=== PATIENT | male | born 1990 | race Caucasian/White ===

== ENCOUNTER 2017-12-17 09:32 | Emergency (ER) | payer SELFPAY ==
[2017-12-17] MEDS ORDERED: Ketorolac 30 MG/ML SDV IVPUSH ONE (09:57)
[2017-12-17] MEDS ORDERED: Sodium Chloride 0.9% 1,000 ML IV ONE (09:57)
[2017-12-17] MEDS ORDERED: Ondansetron 4 MG/2 ML SDV IVPUSH ONE (09:57)
--- NOTE | 2017-12-17 09:58 | EDM.PDOC ---
ED HPI GENERAL MEDICAL PROBLEM - General Chief Complaint: Abdominal Pain Stated Complaint: ABD PAIN Time Seen by Provider: 12/17/17 09:57 Source of Information: Reports: Patient - History of Present Illness INITIAL COMMENTS - FREE TEXT/NARRATIVE: HISTORY AND PHYSICAL: History of present illness: [Patient presents with abdominal pain, he has a focus of pain over his umbilicus radiating to the right lower quadrant rates 5 out of 10 no fever vomiting chills sweats some intermittent nausea ] Review of systems: As per history of present illness and below otherwise all systems reviewed and negative. Past medical history: As per history of present illness and as reviewed below otherwise noncontributory. Surgical history: As per history of present illness and as reviewed below otherwise noncontributory. Social history: No reported history of drug or alcohol abuse. Family history: As per history of present illness and as reviewed below otherwise noncontributory. Physical exam: HEENT: Atraumatic, normocephalic, pupils reactive, negative for conjunctival pallor or scleral icterus, mucous membranes moist, throat clear, neck supple, nontender, trachea midline. Lungs: Clear to auscultation, breath sounds equal bilaterally, chest nontender. Heart: S1S2, regular, negative for clicks, rubs, or JVD. Abdomen: Soft, nondistended, nontender and upper quadrants there is an area of tenderness supraumbilical which appears to be a small mass lesion possible hernia on exam and there is tenderness on deep palpation in the right lower quadrant no guarding or rebound. Negative for masses or hepatosplenomegaly. Negative for costovertebral tenderness. Pelvis: Stable nontender. Genitourinary: Deferred. Rectal: Deferred. Extremities: Atraumatic, negative for cords or calf pain. Neurovascular unremarkable. Neuro: Awake, alert, oriented. Cranial nerves II through XII unremarkable. Cerebellum unremarkable. Motor and sensory unremarkable throughout. Exam nonfocal. Diagnostics: [CBC CMP UA CT abdomen pelvis with contrast ] Therapeutics: [] normal saline bolus Zofran 8 mg IV Toradol 30 mg IV Surgery consultation with Dr. Alfaro she has been in to see and evaluate the patient in the emergency room and formulated plan Bactrim double strength by mouth twice a day #20 no refill Mallard Follow-up with Dr. Alfaro in 2 weeks return to the emergency room if symptoms persist or worsen Impression: [ rectal sheath abscess 3 x 2 x 2 cm ] Definitive disposition and diagnosis as appropriate pending reevaluation and review of above. abdominal Pain Score (Numeric/FACES): 7 - Related Data Allergies Allergy/AdvReac Type Severity Reaction Status Date / Time No Known Allergies Allergy Verified 12/17/17 09:51 Home Meds: Home Meds . [No Known Home Meds] 12/17/17 [History] Past Medical History HEENT History: Reports: None Cardiovascular History: Reports: None Respiratory History: Reports: None Gastrointestinal History: Reports: None Genitourinary History: Reports: None Musculoskeletal History: Reports: None Neurological History: Reports: None Psychiatric History: Reports: None Endocrine/Metabolic History: Reports: None Hematologic History: Reports: None Immunologic History: Reports: None Oncologic (Cancer) History: Reports: None Dermatologic History: Reports: None - Infectious Disease History Infectious Disease History: Reports: Chicken Pox, Other (See Below) Other Infectious Disease History: previous hx of staph - Past Surgical History HEENT Surgical History: Reports: Oral Surgery Cardiovascular Surgical History: Reports: None Respiratory Surgical History: Reports: None GI Surgical History: Reports: None Male Surgical History: Reports: None Endocrine Surgical History: Reports: None Neurological Surgical History: Reports: None Musculoskeletal Surgical History: Reports: None Oncologic Surgical History: Reports: None Dermatological Surgical History: Reports: None Social & Family History - Family History Family Medical History: Noncontributory - Tobacco Use Smoking Status *Q: Current Every Day Smoker Years of Tobacco use: 11 Packs/Tins Daily: 1 - Caffeine Use Caffeine Use: Reports: Coffee - Alcohol Use Number of Drinks Per Day: 10 - Recreational Drug Use Recreational Drug Use: No ED ROS GENERAL - Review of Systems Review Of Systems: See Below ED EXAM, GENERAL - Physical Exam Exam: See Below Course - Vital Signs Last Recorded V/S: Last Vital Signs Temp 98.9 F 12/17/17 09:51 Pulse 89 12/17/17 09:51 Resp 18 12/17/17 09:51 BP 157/85 H 12/17/17 09:51 Pulse Ox 98 12/17/17 09:51 - Orders/Labs/Meds Orders: Active Orders 24 hr Category Date Time Status Notify Provider Consults [RC] ASDIRECTED Care 12/17/17 12:38 Ordered Consult to Physician [CONS] Stat Cons 12/17/17 12:36 Ordered Abdomen Pelvis w Cont [CT] Stat Exams 12/17/17 10:15 Taken UA W/MICROSCOPIC [URIN] Stat Lab 12/17/17 10:05 Ordered Labs: Laboratory Tests 12/17/17 12/17/17 12/17/17 Range/Units 10:05 10:10 10:10 WBC 10.11 (4.0-11.0) K/uL RBC 4.37 L (4.50-5.90) M/uL Hgb 14.5 (13.0-17.0) g/dL Hct 41.8 (38.0-50.0) % MCV 95.7 (80.0-98.0) fL MCH 33.2 H (27.0-32.0) pg MCHC 34.7 (31.0-37.0) g/dL RDW Std Deviation 41.9 (28.0-62.0) fl RDW Coeff of Kevin 12 (11.0-15.0) % Plt Count 209 (150-400) K/uL MPV 9.60 (7.40-12.00) fL Neut % (Auto) 71.1 (48.0-80.0) % Lymph % (Auto) 17.7 (16.0-40.0) % [place] % (Auto) 10.2 (0.0-15.0) % Eos % (Auto) 0.8 (0.0-7.0) % Baso % (Auto) 0.2 (0.0-1.5) % Neut # (Auto) 7.2 H (1.4-5.7) K/uL Lymph # (Auto) 1.8 (0.6-2.4) K/uL [place] # (Auto) 1.0 H (0.0-0.8) K/uL Eos # (Auto) 0.1 (0.0-0.7) K/uL Baso # (Auto) 0.0 (0.0-0.1) K/uL Nucleated RBC % 0.0 /100WBC Nucleated RBCs # 0 K/uL Sodium 140 (136-148) mmol/L Potassium 4.2 (3.5-5.1) mmol/L Chloride 104 (98-107) mmol/L Carbon Dioxide 28.3 (21.0-32.0) mmol/L BUN 13 (7.0-18.0) mg/dL Creatinine 0.9 (0.8-1.3) mg/dL Est Cr Clr Drug Dosing 135.32 mL/min Estimated GFR (MDRD) > 60.0 ml/min Glucose 74 (74-106) mg/dL Calcium 8.8 (8.5-10.1) mg/dL Total Bilirubin 0.5 (0.2-1.0) mg/dL AST 16 (15-37) IU/L ALT 27 (14-63) IU/L Alkaline Phosphatase 63 (46-116) U/L Total Protein 7.6 (6.4-8.2) g/dL Albumin 3.8 (3.4-5.0) g/dL Globulin 3.8 H (2.0-3.5) g/dL Albumin/Globulin Ratio 1.0 L (1.3-2.8) Lipase 109 (73-393) U/L Urine Color YELLOW Urine Appearance CLEAR Urine pH 6.0 (5.0-8.0) Ur Specific [place] 1.020 (1.001-1.035) Urine Protein NEGATIVE (NEGATIVE) mg/dL Urine Glucose (UA) NEGATIVE (NEGATIVE) mg/dL Urine Ketones TRACE H (NEGATIVE) mg/dL Urine Occult Blood NEGATIVE (NEGATIVE) Urine Nitrite NEGATIVE (NEGATIVE) Urine Bilirubin NEGATIVE (NEGATIVE) Urine Urobilinogen 1.0 (<2.0) EU/dL Ur Leukocyte Esterase NEGATIVE (NEGATIVE) Urine RBC 0-1 (0-2/HPF) Urine WBC 0-1 (0-5/HPF) Ur Epithelial Cells OCCASIONAL (NONE-FEW) Urine Bacteria RARE (NEGATIVE) Meds: Medications Discontinued Medications Generic Name Dose Route Start Last Admin Trade Name Freq PRN Reason Stop Dose Admin Sodium Chloride 1,000 mls @ 999 mls/hr 12/17/17 09:57 12/17/17 10:10 Normal Saline IV 12/17/17 10:57 999 mls/hr STAT ONE Administration Iopamidol 100 ml 12/17/17 11:08 12/17/17 11:09 Isovue Multipack-370 (76%) IVPUSH 12/17/17 11:09 100 ml ONETIME STA Administration Ketorolac Tromethamine 30 mg 12/17/17 09:57 12/17/17 10:14 Toradol IVPUSH 12/17/17 09:58 30 mg ONETIME ONE Administration Ondansetron HCl 8 mg 12/17/17 09:57 12/17/17 10:13 Zofran IVPUSH 12/17/17 09:58 8 mg ONETIME ONE Administration Departure - Departure Time of Disposition: 12:40 Disposition: Home, Self-Care 01 Condition: Fair Clinical Impression: Abscess - Discharge Information Referrals: PCP,None [Primary Care Provider] - Forms: ED Department Discharge Additional Instructions: Medication as prescribed No heavy equipment operation or driving or alcohol with narcotic pain medication Return if symptoms persist or worsen or fever nausea vomiting chills sweat Follow-up with Dr. Cota general surgery 2 weeks sooner as needed [facility] - General Surgery [address], [address] [place] [address] The following information is given to patients seen in the emergency department who are being discharged to home. This information is to outline your options for follow-up care. We provide all patients seen in our emergency department with a follow-up referral. The need for follow-up, as well as the timing and circumstances, are variable depending upon the specifics of your emergency department visit. If you don't have a primary care physician on staff, we will provide you with a referral. We always advise you to contact your personal physician following an emergency department visit to inform them of the circumstance of the visit and for follow-up with them and/or the need for any referrals to a consulting specialist. The emergency department will also refer you to a specialist when appropriate. This referral assures that you have the opportunity for follow-up care with a specialist. All of these measure are taken in an effort to provide you with optimal care, which includes your follow-up. Under all circumstances we always encourage you to contact your private physician who remains a resource for coordinating your care. When calling for follow-up care, please make the office aware that this follow-up is from your recent emergency room visit. If for any reason you are refused follow-up, please contact the [facility] emergency department at and asked to speak to the emergency department charge nurse. - My Orders Last 24 Hours: My Active Orders 12/17/17 10:05 UA W/MICROSCOPIC [URIN] Stat 12/17/17 10:15 Abdomen Pelvis w Cont [CT] Stat 12/17/17 12:36 Consult to Physician [CONS] Stat 12/17/17 12:38 Notify Provider Consults [RC] ASDIRECTED - Assessment/Plan Last 24 Hours: My Active Orders 12/17/17 10:05 UA W/MICROSCOPIC [URIN] Stat 12/17/17 10:15 Abdomen Pelvis w Cont [CT] Stat 12/17/17 12:36 Consult to Physician [CONS] Stat 12/17/17 12:38 Notify Provider Consults [RC] ASDIRECTED
[2017-12-17 10:39] LABS: CHLORIDE,CL 104 mmol/L (98-107); SODIUM,NA 140 mmol/L (136-148)
[2017-12-17] MEDS ORDERED: Iopamidol 755 MG/ML 500 ML Multipack Bottle IVPUSH STA (11:08)
--- NOTE | 2017-12-17 14:11 | PCM.CONS ---
H&P History of Present Illness - General Date of Service: 12/17/17 Source of Information: Patient History Limitations: Reports: Combative/Threatening - History of Present Illness Initial Comments - Free Text/Narative: Patient is a 27 year old male who presented to the ER with pain and swelling around his umbilicus. He felt pain along the right side of his abdomen as well. He had some nausea. He was very frustrated and short with me when asking about his history so my review of systems was very limited. According to the ER physician he was not having fevers or chills. 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 He denied any GI issues other than "I drink and smoke alot." abdominal Pain Score (Numeric/FACES): 7 - Related Data Allergies/Adverse Reactions: Allergies Allergy/AdvReac Type Severity Reaction Status Date / Time No Known Allergies Allergy Verified 12/17/17 09:51 Home Medications: Home Meds . [No Known Home Meds] 12/17/17 [History] Past Medical History HEENT History: Reports: None Cardiovascular History: Reports: None Respiratory History: Reports: None Gastrointestinal History: Reports: None Genitourinary History: Reports: None Musculoskeletal History: Reports: None Neurological History: Reports: None Psychiatric History: Reports: None Endocrine/Metabolic History: Reports: None Hematologic History: Reports: None Immunologic History: Reports: None Oncologic (Cancer) History: Reports: None Dermatologic History: Reports: None - Infectious Disease History Infectious Disease History: Reports: Chicken Pox, Other (See Below) Other Infectious Disease History: previous hx of staph - Past Surgical History HEENT Surgical History: Reports: Oral Surgery Cardiovascular Surgical History: Reports: None Respiratory Surgical History: Reports: None GI Surgical History: Reports: None Male Surgical History: Reports: None Endocrine Surgical History: Reports: None Neurological Surgical History: Reports: None Musculoskeletal Surgical History: Reports: None Oncologic Surgical History: Reports: None Dermatological Surgical History: Reports: None Social & Family History - Family History GI: Reports: Other (See Below) (Brother has crohn's disease.) - Tobacco Use Smoking Status *Q: Current Every Day Smoker Years of Tobacco use: 11 Packs/Tins Daily: 1 - Caffeine Use Caffeine Use: Reports: Coffee - Alcohol Use Alcohol Use History: Yes Number of Drinks Per Day: 10 Alcohol Use Frequency: Binges, Daily Alcohol Use Comment: Denies DT symptoms - Recreational Drug Use Recreational Drug Use: No H&P Review of Systems - Review of Systems: Review Of Systems: ROS reveals no pertinent complaints other than HPI. Exam - Exam Exam: See Below - Vital Signs Vital Signs: Last Vital Signs Temp 37.2 C 12/17/17 09:51 Pulse 89 12/17/17 09:51 Resp 18 12/17/17 09:51 BP 157/85 H 12/17/17 09:51 Pulse Ox 98 12/17/17 09:51 Weight: 94.7 kg - Exam General: Alert, Oriented, Other (Aggrivated and short with me) HEENT: Conjunctiva Clear, Mucosa Moist & [place], Posterior Pharynx Clear Neck: Supple, Trachea Midline Lungs: Clear to Auscultation, Normal Respiratory Effort Cardiovascular: Regular Rate, Regular Rhythm GI/Abdominal Exam: Soft, No Distention, Other (pin point tender along upper right rectus muscle, firm tender swelling in the supra-umbilical area. ) - Patient Data Lab Results Last 24 hrs: Laboratory Results - last 24 hr 12/17/17 12/17/17 12/17/17 Range/Units 10:05 10:10 10:10 WBC 10.11 (4.0-11.0) K/uL RBC 4.37 L (4.50-5.90) M/uL Hgb 14.5 (13.0-17.0) g/dL Hct 41.8 (38.0-50.0) % MCV 95.7 (80.0-98.0) fL MCH 33.2 H (27.0-32.0) pg MCHC 34.7 (31.0-37.0) g/dL RDW Std Deviation 41.9 (28.0-62.0) fl RDW Coeff of [place] 12 (11.0-15.0) % Plt Count 209 (150-400) K/uL MPV 9.60 (7.40-12.00) fL Neut % (Auto) 71.1 (48.0-80.0) % Lymph % (Auto) 17.7 (16.0-40.0) % [place] % (Auto) 10.2 (0.0-15.0) % Eos % (Auto) 0.8 (0.0-7.0) % Baso % (Auto) 0.2 (0.0-1.5) % Neut # (Auto) 7.2 H (1.4-5.7) K/uL Lymph # (Auto) 1.8 (0.6-2.4) K/uL [place] # (Auto) 1.0 H (0.0-0.8) K/uL Eos # (Auto) 0.1 (0.0-0.7) K/uL Baso # (Auto) 0.0 (0.0-0.1) K/uL Nucleated RBC % 0.0 /100WBC Nucleated RBCs # 0 K/uL Sodium 140 (136-148) mmol/L Potassium 4.2 (3.5-5.1) mmol/L Chloride 104 (98-107) mmol/L Carbon Dioxide 28.3 (21.0-32.0) mmol/L BUN 13 (7.0-18.0) mg/dL Creatinine 0.9 (0.8-1.3) mg/dL Est Cr Clr Drug Dosing 135.32 mL/min Estimated GFR (MDRD) > 60.0 ml/min Glucose 74 (74-106) mg/dL Calcium 8.8 (8.5-10.1) mg/dL Total Bilirubin 0.5 (0.2-1.0) mg/dL AST 16 (15-37) IU/L ALT 27 (14-63) IU/L Alkaline Phosphatase 63 (46-116) U/L Total Protein 7.6 (6.4-8.2) g/dL Albumin 3.8 (3.4-5.0) g/dL Globulin 3.8 H (2.0-3.5) g/dL Albumin/Globulin Ratio 1.0 L (1.3-2.8) Lipase 109 (73-393) U/L Urine Color YELLOW Urine Appearance CLEAR Urine pH 6.0 (5.0-8.0) Ur Specific [place] 1.020 (1.001-1.035) Urine Protein NEGATIVE (NEGATIVE) mg/dL Urine Glucose (UA) NEGATIVE (NEGATIVE) mg/dL Urine Ketones TRACE H (NEGATIVE) mg/dL Urine Occult Blood NEGATIVE (NEGATIVE) Urine Nitrite NEGATIVE (NEGATIVE) Urine Bilirubin NEGATIVE (NEGATIVE) Urine Urobilinogen 1.0 (<2.0) EU/dL Ur Leukocyte Esterase NEGATIVE (NEGATIVE) Urine RBC 0-1 (0-2/HPF) Urine WBC 0-1 (0-5/HPF) Ur Epithelial Cells OCCASIONAL (NONE-FEW) Urine Bacteria RARE (NEGATIVE) Result Diagrams: 12/17/17 10:10 12/17/17 10:10 Consult PN Assessment/Plan (1) Rectus sheath abscess SNOMED Code(s): 932611682 Code(s): K61.1 - RECTAL ABSCESS Current Visit: Yes Problem List Initiated/Reviewed/Updated: Yes Plan: His WBC is normal. A CT of his abdomen showed inflammation about the umbilicus and this extended to the rectus sheath where there was a 3.4 x 2.2 x 1.7 cm fluid collection with an enhancing wall suggestive of an abscess. I did not see an umbilical hernia. I tried to explain to the patient that this can be caused by a small hematoma that formed that subsequently got infected or could be a sign of something bigger going on. His brother has a history of crohn's and this can be a enterocutaneous fistula starting to form, however this is less likely. I explained that we could do one of three treatments; since it is small we could try a trial of antibiotics and see if this resolves on its own, we could try antibiotics over the weekend and attempt CT guided drainage next week with our interventional radiologist since he is not here today, the third option would involve surgical exploration with drainage of the abscess. If we attempt surgical drainage he would need to be off work and non-lifting for at least 2 weeks if not longer. He was frustrated and said "cant you just drain it right here?!" I told him the abscess is too deep to drain without radiological assistance or an operation. He stated "just give me pain meds and antibiotics. I 'll come back if I have to." He then sat up in bed and wanted to leave right away. 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 He said that is fine. He should follow up sooner if the pain worsens or he develops fevers, chills. He can otherwise follow up with me in 2 weeks.
--- NOTE | 2017-12-17 18:40 | CT ---
EXAM DATE: 12/17/17 PATIENT'S AGE: 27 Patient: [employer] Facility: [place], [place] Site . Site : 1990 Study: CT Abdomen/Pelvis [id number] 11:16:26 AM Ordering Physician: Trung Ivey Final Report: INDICATION: Right lower quadrant abdomen pain. Supraumbilical hernia. TECHNIQUE: CT abdomen and pelvis acquired with 100 cc Isovue 370 IV contrast. COMPARISON: None. FINDINGS: Lower chest: Unremarkable. Liver: Unremarkable. Normal in size and attenuation. No masses. Gallbladder and bile ducts: Unremarkable. No stones or inflammation. No biliary dilatation. Pancreas: Unremarkable. No mass or inflammation. Spleen: Unremarkable. Normal in size. No masses. Adrenal glands: Unremarkable. No nodules. Kidneys: Unremarkable. No masses, stones, or hydronephrosis. GI tract: Unremarkable. Normal in caliber. No sign of mass or inflammation. Normal appendix. Vasculature: Unremarkable. Lymph nodes: No lymphadenopathy. Omentum/Peritoneum/Abdominal Wall: There is inflammation about the umbilicus. This inflammation extends into the rectus sheath where there is a 3.4 by 2.2 x 1.7 cm fluid collection with an enhancing wall suggestive of an abscess as visualized on the axial series image 74 and the sagittal series image 66. There is edematous enlargement of the right side rectus abdominus muscle in this area. Small amount of free fluid in the pelvis. No free air. Pelvis: Unremarkable. Bones: Unremarkable for age. IMPRESSION: 1. There is paraumbilical inflammation extending into the rectus sheath where there is a small abscess and edematous enlargement of the right side rectus abdominus muscle. 2. Remainder of the exam is unremarkable. No other finding to explain abdomen or right-sided pain. Please note that all CT scans at this facility use dose modulation, iterative reconstruction, and/or weight-based dosing when appropriate to reduce radiation dose to as low as reasonably achievable. Dictated by Domingo Monae MD @ Dec 17 2017 11:36AM (Electronic Signature) Report Signed by Proxy. [facility]
== END 2017-12-17 13:11 | disposition home or self-care (01) ==
LOC: MW.ED 09:32
DX: K61.1 Rectal abscess (principal); F17.210 Nicotine dependence, cigarettes, uncomplicated
CPT/HCPCS: 36415; 74177; 80053; 81001; 83690; 85025; 96361; 96374; 96375; 99285; J1885; J2405; J7040; Q9967

== ENCOUNTER 2017-12-22 09:35 | Emergency (ER) | payer SELFPAY | END 2017-12-22 10:10 | disposition left against medical advice (07) | LOC: MW.ED 09:35 | DX: Z53.21 Procedure and treatment not carried out due to patient leaving prior to being seen by health care provider (principal) ==

== ENCOUNTER 2022-03-26 09:36 | Emergency (ER) | payer OTHER | END 2022-03-26 11:06 | LOC: MW.ED 09:36 | DX: F10.10 Alcohol abuse, uncomplicated (principal); F17.210 Nicotine dependence, cigarettes, uncomplicated | CPT/HCPCS: 99282; 99283 ==